=== PATIENT | female | born 1945 | race Caucasian/White ===

== ENCOUNTER 2022-10-22 14:29 | Outpatient (CLI) | payer MEDICARE, OTHER ==
--- NOTE | 2022-10-22 16:36 | XRAY Report ---
PROCEDURE: Knee 2 View RT INDICATIONS: R KNEE PX TECHNIQUE: 2 views of the right knee(s) were acquired. COMPARISON: None. FINDINGS: Bones: No fractures or dislocations. Mild tricompartmental osteoarthritis is seen with joint space n arrowing and subchondral sclerosis. No suspicious bony lesions. Soft tissues: No joint effusion. Chondrocalcinosis in medial and lateral femoral tibial compartment is seen. IMPRESSION: Mild tricompartmental osteoarthritis and chondrocalcinosis as above. No fracture or disl ocation. No significant joint effusion. Reviewed by: Immanuel Art MD on 10/22/2022 4:34 PM PST Approved by: Immanuel Art MD on 10/22/2022 4:34 PM PST Station ID: [id number]
== END 2022-10-22 23:59 | disposition home or self-care (01) ==
LOC: DI.N 14:29
PROVIDERS: ATTEND Family Medicine
DX: M17.11 Unilateral primary osteoarthritis, right knee (principal); M11.261 Other chondrocalcinosis, right knee

== ENCOUNTER 2023-07-08 13:02 | Outpatient (CLI) | payer MEDICARE, OTHER ==
--- NOTE | 2023-07-09 11:54 | XRAY Report ---
PROCEDURE: Wrist 4 View LT INDICATIONS: WRIST SPRAIN TECHNIQUE: 3 views of the wrist were acquired. COMPARISON: None. FINDINGS: Bones: There is a linear density adjacent to the radial styloid. No suspicious bony lesions. Scaphoi d is intact. Multiple osseous densities are seen around wrist, probably sequelae of remote injuries. Severe first carpometacarpal joint degeneration and moderate triscaphe joint degeneration. Soft tissues: No suspicious soft tissue calcifications or masses. There is triangular fibrocartilage calcification. IMPRESSION: 1. A linear density adjacent to the radial styloid, which could represent acute or subacute fracture. No tendon 3, this could be caused by ligamentous calcification or dystrophic soft tissue calcificati on. Recommend correlation with focal pain and tenderness. 2. Multiple osseous densities around wrist, indeterminate but likely sequelae of remote trauma. 3. Severe osteoarthritic changes of the first carpometacarpal joint. 4. Osteopenia. Reviewed by: Tr Raymond MD on 07/09/2023 11:53 AM PDT Approved by: Tr Raymond MD on 07/09/2023 11:53 AM PDT Station ID: [id number]
== END 2023-07-08 13:03 | disposition home or self-care (01) ==
LOC: DI 13:02
PROVIDERS: ATTEND Family Medicine
DX: S63.502A Unspecified sprain of left wrist, initial encounter (principal); M19.032 Primary osteoarthritis, left wrist; M85.88 Other specified disorders of bone density and structure, other site; R93.6 Abnormal findings on diagnostic imaging of limbs

== ENCOUNTER 2023-08-03 10:30 | Outpatient (CLI) | payer MEDICARE, OTHER | END 2023-08-03 10:45 | disposition home or self-care (01) | LOC: LAB.N 10:30 | PROVIDERS: ATTEND Registered Nurse | DX: R30.0 Dysuria (principal) | CPT/HCPCS: 87077; 87086; 87181 ==

== ENCOUNTER 2024-03-13 18:49 | Outpatient (CLI) | payer MEDICARE, OTHER | END 2024-03-13 18:50 | disposition home or self-care (01) | LOC: LAB.N 18:49 | PROVIDERS: ATTEND Physician Assistant Medical | DX: N39.0 Urinary tract infection, site not specified (principal) | CPT/HCPCS: 87086 ==